=== PATIENT | female | born 1990 | race Caucasian/White ===

== ENCOUNTER 2024-03-08 08:50 | Emergency (ER) | payer OTHER, SELFPAY ==
[2024-03-08 08:54] VITALS: BP 150/89
--- NOTE | 2024-03-08 09:14 | ED.GENMED ---
History of Present Illness
General
Chief Complaint: Prescription Refill
Source: patient
Time Seen by Provider: 03/08/24 09:07
History of Present Illness
History of Present Illness:
33-year-old female with past medical history of previous opioid addiction, patient currently sober for 8 years, maintained on daily methadone presenting to the ER for methadone dosing. Patient was recently on vacation and missed the last few days
despite attempts to try and set up being able to get doses of her medication while on vacation. Patient went back to the clinic today to resume her program but was unable to be dosed due to the medical provider not being present and was recommended
to come to the ER to have her dose given. Patient states she gets 55 mg in the morning and 53 at nighttime. She is understanding that she would only be able to get the 55 mg here. Patient without any physical complaints at this time. No other
concern
Past History
Past History
ED Past Medical History: Hypercholesterolemia and Psychiatric
ED Past Surgical History: Other ([place] teeth)
Social History
Tobacco: Smoker
Alcohol: None
Drug: Former user
Personal:
Living: with family
Employment: Employed ([employer])
Family History
Family History: Other (Noncontributory)
Review of Systems
Review of Systems
All Other Systems: ROS reviewed and negative except as documented in HPI and ROS
Phy Exam
Physical Exam
Physical Exam:
GENERAL: Alert , in no apparent distress
EYE: conjunctiva clear
Head: Normocephalic atraumatic
NECK: Supple,
ENT: mmm.
LUNGS: no acute respiratory distress
NEUROLOGICAL: Alert and oriented
SKIN: Warm and dry, skin intact.
MUSCULOSKELETAL: well perfused.
PSYCH: Normal and appropriate interaction.
Scores
Heart Failure Risk
Heart Failure Risk Score: Not Applicable
Heart Score for Chest Pain Patients
STEMI patient?: Not applicable
Withdrawal Assessment of Alcohol
Withdrawal Assessment Completed?: Not applicable
Course
Orders/Labs/Results
Orders:
Orders
03/08/24 09:40
Methadone [Dolophine] 5 mg PO NOW STA
03/08/24 09:41
Methadone [Dolophine] 50 mg PO NOW STA
Vital Signs
Initial and Last Documented VS:
Initial Vital Signs
Temp Pulse Resp BP Pulse Ox
98.9 F 104 18 150/89 100
03/08/24 08:54 03/08/24 08:54 03/08/24 08:54 03/08/24 08:54 03/08/24 08:54
Last Documented Vital Signs
Temp Pulse Resp BP Pulse Ox
98.9 F 104 18 150/89 100
03/08/24 08:54 03/08/24 08:54 03/08/24 08:54 03/08/24 08:54 03/08/24 08:54
MDM/Problems Addressed
MDM/Problems Addressed:
33-year-old female presenting to the ER for evaluation after missing the last few days of methadone dosing due to being on vacation, unfortunately went to methadone clinic today and they could not dose the patient's medication so they recommended
she come to the ER. [facility] at the listed phone number [phone] and left him a voicemail to contact the ER back to verify patient's dose and that she did not get her methadone there this morning.
Disposition pending
*Pulse Oximetry
Patient hypoxic: no
*Critical Care Note
Total Time (30-74mins, 75-104mins- exclusive of procedures): Not Applicable
Patient Management
Escalation/DeEscalation of care consider admission/obs:
Spoke to nurse Garcia from [facility] who confirmed patient did not receive any doses from their clinic since last week which is consistent with patients story. She takes a split dose 55mg in the AM and 53mg in the PM. Explained that I am unable to dose the
patients night time med here. Patient understanding. She will follow up with clinic early next week for continued medications
ED Attending Note
-
Portions of this chart may have been created with voice recognition software.� Occasional wrong word or��sound alike� substitutions may have occurred due to the inherent limitations of voice recognition software.
Discharge Plan
Departure
Patient Disposition: Home (Routine Discharge)
Date of Disposition: 03/08/24
Time of Disposition: 09:27
Patient with high blood pressure during this ER visit?: Yes
Discharge Problem:
Encounter for medication refill
Prescriptions:
No Action
clonidine HCl 0.2 MG tablet
0.2 mg PO HS
Patient Comments:
takes for anxiety, aft & evening
methadone [Methadose] 10 MG/ML concentrate
100 mg PO HS
methadone [Methadose] 10 MG/ML concentrate
140 mg PO DAILY
quetiapine [Seroquel] 50 MG tablet
50 mg PO DAILY
lamotrigine [Lamictal] 150 MG tablet
1 tab PO DAILY
Patient Comments:
psychiatric diagnoses
clonidine HCl 0.1 MG tablet
0.1 mg PO DAILY
quetiapine 100 MG tablet
100 mg PO HS
acetaminophen 325 MG tablet
650 mg PO Q4HPRN PRN (Reason: mild pain) 0RF
ibuprofen 600 MG tablet
600 mg PO Q4HPRN PRN (Reason: moderate pain/cramps) 0RF
hydralazine 10 MG tablet
5 mg PO Daily Qty: 5 0RF
Interventions
Interventions:
*Risk Screen - Suicide Last Done: 03/08/24 08:54
*General Assessment Last Done: 03/08/24 08:54
*Neglect/Abuse Screening Last Done: 03/08/24 08:54
ED- Fall Risk Assessment Last Done: 03/08/24 10:28
*ED COVID-19 Vaccine History Last Done: 03/08/24 10:28
*Nursing Disposition Last Done: 03/08/24 10:28
Discharge Date and Time
Discharge Date/Time: 03/08/24 10:28
Print Language: BRAZILIAN
[2024-03-08] MEDS: DOLOPHINE 5 MG PO (10:25)
[2024-03-08] MEDS: DOLOPHINE 50 MG PO (10:25)
== END 2024-03-08 10:28 | disposition home or self-care (01) ==
LOC: EMR 08:50
PROVIDERS: EMERGENCY PHYSICIAN Emergency Medicine
DX: Z76.0 Encounter for issue of repeat prescription (principal); E78.00 Pure hypercholesterolemia, unspecified; F17.200 Nicotine dependence, unspecified, uncomplicated
CPT/HCPCS: 99282